=== PATIENT | female | born 1950 | race Caucasian/White ===

== ENCOUNTER → 2017-02-01 | Outpatient (REF) | payer MEDICARE, OTHER ==
[2017-02-01 17:46] LABS: PERCENT SATURATION 29.9 % (13.2-37.4); TOTAL IRON BINDING CAPACITY 308 UG/DL (250-450)
[2017-02-01 18:28] LABS: VITAMIN B12 LEVEL 873 PG/ML
[2017-02-01 18:29] LABS: FOLATE > 24.0 NG/ML
== END ==
LOC: M LAB REF 17:12
PROVIDERS: ATTEND Internal Medicine
DX: Z98.84 Bariatric surgery status (principal)

== ENCOUNTER → 2017-04-29 | Outpatient (CLI) | payer MEDICARE, BC, OTHER ==
--- NOTE | 2017-05-04 00:05 | SLEEPCENT ---
DATE OF PROCEDURE: 04/29/2017 ORDERED BY: Ria Garcia Nocturnal polysomnography was performed for evaluation of sleep apnea syndrome symptoms in this patient with a history of excessive somnolence and nonrestorative sleep. 7 hours and 57 minutes of data were reviewed. There were 147 minutes of sleep identified. Sleep latency was quite prolonged at 194 minutes. Rapid eye movement (REM) sleep was not achieved. Sleep architecture showed fragmentation and poor progression with periods of wake after sleep onset. Overall sleep efficiency was quite reduced at 31.5%. The patient's EKG showed a sinus rhythm with PVCs. PVCs were frequent, but there were no salvos or trains of events. Average heart rate 60 beats per minute. Rate ranged 40 to 82 beats per minute. EEG showed reasonably normal waveforms for awake and sleep. There were 223 respiratory events identified of 10 seconds in duration or greater for an apnea-hypopnea index of 91. The events were primarily obstructive, though 48 central and mixed apneas were also seen. The events were not exclusive to sleep stage nor body posture. Arousals from respiratory events occurred 50.6 times per hour and oxygen desaturations were seen into the low 80s. There was some limb activity noted and profound snoring. Arousals from limb events were few. IMPRESSION: Severe obstructive sleep apnea syndrome (G47.33), apnea-hypopnea index 91. RECOMMENDATION: The patient should be encouraged to return to the sleep disorder center at her earliest convenience for pressure therapy. In the interim, alcohol and sedative avoidance should be practiced and caution exercised during the operation of motor vehicles. Copy To: Dr. Hood
== END ==
LOC: M SLEEP 19:36
PROVIDERS: ATTEND Nurse Practitioner Adult Health
DX: G47.33 Obstructive sleep apnea (adult) (pediatric) (principal)

== ENCOUNTER → 2017-10-03 | Outpatient (CLI) | payer MEDICARE, BC, OTHER | LOC: M SLEEP 19:45 | DX: G47.33 Obstructive sleep apnea (adult) (pediatric) (principal); R40.0 Somnolence | CPT/HCPCS: 95811 ==

== ENCOUNTER → 2018-04-03 | Outpatient (CLI) | payer MEDICARE, BC, OTHER ==
[2018-04-03 13:42] LABS: HEMATOCRIT 39.5 % (36.0-47.0); HEMOGLOBIN 12.8 g/dl (12.0-15.5); MEAN CORPUSCULAR HEMOGLOBIN 30.4 pg (27.0-33.0); MEAN CORPUSCULAR HGB CONC 32.4 g/dl (32.0-36.5); MEAN CORPUSCULAR VOLUME 93.8 fl (80.0-96.0); PLATELET COUNT, AUTOMATED 276 10^3/uL (150-450); RED BLOOD COUNT 4.21 10^6/uL (4.00-5.40); RED CELL DISTRIBUTION WIDTH 13.6 % (11.5-14.5); WHITE BLOOD COUNT 9.2 10^3/uL (4.0-10.0)
[2018-04-03 13:51] LABS: INR 0.93; PROTHROMBIN TIME 12.6 SECONDS (12.1-14.4)
[2018-04-03 14:10] LABS: ERYTHROCYTE SEDIMENTATION RATE 49 mm/hr (0-30)
[2018-04-03 14:51] LABS: ALBUMIN 3.8 GM/DL (3.2-5.2); ALBUMIN/GLOBULIN RATIO 1.09 (1.00-1.93); ALKALINE PHOSPHATASE 96 U/L (45-117); ALT/SGPT 33 U/L (12-78); ANION GAP 8 MEQ/L (8-16); AST/SGOT 23 U/L (7-37); BILIRUBIN,TOTAL 0.7 MG/DL (0.2-1.0); BLOOD UREA NITROGEN 15 MG/DL (7-18); CALCIUM LEVEL 8.8 MG/DL (8.8-10.2); CARBON DIOXIDE LEVEL 30 MEQ/L (21-32); CHLORIDE LEVEL 105 MEQ/L (98-107); CREATININE FOR GFR 1.24 MG/DL (0.55-1.30); GLOMERULAR FILTRATION RATE 46.1 (>45); GLUCOSE, FASTING 121 MG/DL (70-100); POTASSIUM SERUM 4.1 MEQ/L (3.5-5.1); SODIUM LEVEL 143 MEQ/L (136-145); TOTAL PROTEIN 7.3 GM/DL (6.4-8.2)
== END ==
LOC: M LAB 12:26
DX: Z01.818 Encounter for other preprocedural examination (principal); M17.12 Unilateral primary osteoarthritis, left knee
CPT/HCPCS: 71046

== ENCOUNTER 2018-04-25 09:42 | Inpatient (IN) | payer MEDICARE, BC, OTHER ==
[2018-04-25] MEDS: EPINEPHrine INJ 1 MG/ML 1ML AMP As Ordered ×2 (10:28→12:34)
[2018-04-25] MEDS ORDERED: MIDAZOLAM INJ 2 MG/2 ML VIAL (J2250) As Ordered ×2 (10:49→10:51)
[2018-04-25] MEDS ORDERED: fentaNYL 100 MCG/2 ML INJECTION (J3010) As Ordered (10:51)
[2018-04-25] MEDS: fentaNYL 100 MCG/2 ML INJECTION (J3010) IV (11:07)
[2018-04-25] MEDS: MIDAZOLAM INJ 2 MG/2 ML VIAL (J2250) IV (11:07)
[2018-04-25] MEDS ORDERED: fentaNYL 100 MCG/2 ML INJECTION (J3010) IV ×2 (11:45→14:00)
[2018-04-25] MEDS: CLINDAMYCIN 900 MG in APPROPRIATE DILUENT 1 EA IV ×2 (11:57→20:58)
[2018-04-25] MEDS: TRANEXAMIC ACID 100 MG/ML 10ML VIAL As Ordered (12:33)
[2018-04-25] MEDS: CLINDAMYCIN INJ 900MG/6ML VIAL As Ordered (12:34)
[2018-04-25] MEDS ORDERED: ePHEDrine SULFATE 25 MG/5 ML(5MG/ML) SYRINGE As Ordered (12:50)
[2018-04-25] MEDS ORDERED: PROPOFOL 200 MG/20 ML VIAL As Ordered (13:11)
[2018-04-25] MEDS: BUPIVACAINE LIPOSOME/PF 1.3% 20 ML VIAL (13.3MG/ML)(EXPAREL) As Ordered (13:13)
[2018-04-25] MEDS ORDERED: MORPHINE 1MG/ML IN 0.9% NACL 100ML IV BAG As Ordered (13:26)
[2018-04-25] MEDS: LR 1,000 ML IV ×3 (13:31→18:37)
[2018-04-25] MEDS ORDERED: NALBUPHINE HCL 10 MG/ML AMP (J2300) IV (13:45)
[2018-04-25] MEDS ORDERED: ONDANSETRON 4MG/2ML VIAL (J2405) IV ×3 (13:45→14:00)
[2018-04-25] MEDS ORDERED: EPIDURAL/PCA KEYS XX (13:45)
[2018-04-25] MEDS ORDERED: NALOXONE INJ 0.4 MG/1 ML VIAL (J2310) IV (13:45)
[2018-04-25] MEDS ORDERED: diphenhydrAMINE INJ 50MG/ML VIAL (J1200) IV (13:45)
[2018-04-25] MEDS ORDERED: MORPHINE 10 MG/ML 1ML VIAL (J2270) IV (14:00)
[2018-04-25] MEDS: MORPHINE 1MG/ML IN 0.9% NACL 100ML IV BAG IV (14:00)
[2018-04-25] MEDS ORDERED: PERCOCET 5MG/325MG TAB PO (14:00)
[2018-04-25] MEDS ORDERED: ROPIvacaine 0.5% 30 ML INJECTION (J2795 PER 1MG) (14:05)
[2018-04-25] MEDS ORDERED: EPINEPHrine INJ 1 MG/ML 1ML AMP (14:05)
[2018-04-25] MEDS ORDERED: dexameTHASONE 10 MG/1 ML VIAL PRES.FREE (J1100) (14:05)
[2018-04-25] MEDS ORDERED: FLEET ENEMA PR (14:15)
[2018-04-25] MEDS ORDERED: ACETAMINOPHEN TAB 650MG DOSE (2X325MG) PO (14:15)
[2018-04-25] MEDS: NIFEdipine 30 MG XL TAB PO (18:36)
[2018-04-25] MEDS: CETIRIZINE (ZyrTEC) 10 MG TAB PO (20:57)
[2018-04-25] MEDS: VITAMIN D 1,000 INTERNATIONAL UNITS TABLET PO (20:57)
[2018-04-25] MEDS: buPROPion (WELLBUTRIN SR) 100 MG SR TAB PO (20:57)
[2018-04-25] MEDS: rOPINIRole 0.25 MG TAB(REQUIP) PO (20:57)
[2018-04-26] MEDS: CLINDAMYCIN 900 MG in APPROPRIATE DILUENT 1 EA IV (04:05)
[2018-04-26] MEDS: LEVOTHYROXINE 50MCG TABLET (0.05MG) PO (06:04)
[2018-04-26] MEDS ORDERED: ONDANSETRON 4 MG TAB (S0181) PO (06:45)
[2018-04-26] MEDS ORDERED: PERCOCET 5MG/325MG TAB PO (06:45)
[2018-04-26 07:05] LABS: HEMOGLOBIN 11.5 g/dl (12.0-15.5); MEAN CORPUSCULAR HEMOGLOBIN 29.6 pg (27.0-33.0); MEAN CORPUSCULAR HGB CONC 31.1 g/dl (32.0-36.5); MEAN CORPUSCULAR VOLUME 95.1 fl (80.0-96.0); PLATELET COUNT, AUTOMATED 160 10^3/uL (150-450); RED BLOOD COUNT 3.89 10^6/uL (4.00-5.40); RED CELL DISTRIBUTION WIDTH 13.5 % (11.5-14.5); WHITE BLOOD COUNT 16.1 10^3/uL (4.0-10.0)
[2018-04-26] MEDS: SENOKOT S TAB PO ×2 (09:00→20:27)
[2018-04-26] MEDS: MOM 30ML SUSPENSION UDC PO (09:00)
[2018-04-26] MEDS: MIRALAX *UNIT DOSE* 17GM PACKET PO (09:00)
[2018-04-26] MEDS: OMEPRAZOLE 20 MG CAP PO (09:42)
[2018-04-26] MEDS: VITAMIN D 1,000 INTERNATIONAL UNITS TABLET PO ×2 (09:43→20:27)
[2018-04-26] MEDS: VENLAFAXINE **XR** 75MG CAPSULE PO (09:43)
[2018-04-26] MEDS: buPROPion (WELLBUTRIN SR) 100 MG SR TAB PO ×2 (09:48→20:27)
[2018-04-26] MEDS: NIFEdipine 30 MG XL TAB PO (09:48)
[2018-04-26] MEDS: PERCOCET 5MG/325MG TAB PO ×3 (10:04→21:44)
[2018-04-26] MEDS: FLUBLOK(EGG FREE)(QUAD)INFLUENZA VACC 0.5ML SYRINGE (90682)18YRS&OLDER IM (10:07)
[2018-04-26] MEDS: RIVAROXABAN 10 MG TAB (XARELTO) PO (17:28)
[2018-04-26] MEDS: rOPINIRole 0.25 MG TAB(REQUIP) PO (20:27)
[2018-04-26] MEDS: CETIRIZINE (ZyrTEC) 10 MG TAB PO (20:27)
[2018-04-27] MEDS: PERCOCET 5MG/325MG TAB PO ×3 (03:21→11:29)
[2018-04-27] MEDS: LEVOTHYROXINE 50MCG TABLET (0.05MG) PO (06:01)
[2018-04-27 06:22] LABS: HEMATOCRIT 32.9 % (36.0-47.0); HEMOGLOBIN 10.6 g/dl (12.0-15.5); MEAN CORPUSCULAR HGB CONC 32.2 g/dl (32.0-36.5); MEAN CORPUSCULAR VOLUME 93.2 fl (80.0-96.0); PLATELET COUNT, AUTOMATED 209 10^3/uL (150-450); RED BLOOD COUNT 3.53 10^6/uL (4.00-5.40); RED CELL DISTRIBUTION WIDTH 13.7 % (11.5-14.5); WHITE BLOOD COUNT 13.7 10^3/uL (4.0-10.0)
[2018-04-27] MEDS: SENOKOT S TAB PO (09:00)
[2018-04-27] MEDS: MIRALAX *UNIT DOSE* 17GM PACKET PO (09:00)
[2018-04-27] MEDS: NIFEdipine 30 MG XL TAB PO (09:16)
[2018-04-27] MEDS: MOM 30ML SUSPENSION UDC PO (09:16)
[2018-04-27] MEDS: VITAMIN D 1,000 INTERNATIONAL UNITS TABLET PO (09:17)
[2018-04-27] MEDS: OMEPRAZOLE 20 MG CAP PO (09:17)
[2018-04-27] MEDS: buPROPion (WELLBUTRIN SR) 100 MG SR TAB PO (09:17)
[2018-04-27] MEDS: VENLAFAXINE **XR** 75MG CAPSULE PO (09:17)
== END 2018-04-27 14:40 | disposition home health service (06) | DRG 470 ==
LOC: M OR 09:42 → M MS5PR 14:45
PROC: 0SRD0J9 Replacement of Left Knee Joint with Synthetic Substitute, Cemented, Open Approach (ICD-10-PCS; principal; 2018-04-25 11:42)
DX: M17.12 Unilateral primary osteoarthritis, left knee (principal); Z68.41 Body mass index [BMI] 40.0-44.9, adult; G47.33 Obstructive sleep apnea (adult) (pediatric); F32.9 Major depressive disorder, single episode, unspecified; I12.9 Hypertensive chronic kidney disease with stage 1 through stage 4 chronic kidney disease, or unspecified chronic kidney disease; K21.9 Gastro-esophageal reflux disease without esophagitis; E03.9 Hypothyroidism, unspecified; J30.2 Other seasonal allergic rhinitis; G25.81 Restless legs syndrome; E78.00 Pure hypercholesterolemia, unspecified; N18.3 Chronic kidney disease, stage 3 (moderate); F41.9 Anxiety disorder, unspecified; I73.00 Raynaud's syndrome without gangrene; Z96.651 Presence of right artificial knee joint; Z98.84 Bariatric surgery status; E66.01 Morbid (severe) obesity due to excess calories; Z85.3 Personal history of malignant neoplasm of breast; Z87.891 Personal history of nicotine dependence

== ENCOUNTER → 2018-05-09 | Outpatient (REF) | payer MEDICARE, BC, OTHER ==
[2018-05-10 10:22] LABS: HEPATITIS C VIRUS ABY INDEX < 0.0 INDEX (<0.8)
== END ==
LOC: M LAB REF 16:32
DX: Z01.89 Encounter for other specified special examinations (principal)
CPT/HCPCS: 86803

== ENCOUNTER → 2018-11-17 | Outpatient (REF) | payer MEDICARE, OTHER ==
[~2018-11-17] MED LIST: BIOT5TAB3 PO; BUPR10TASR PO; CALC1TAB72 PO; CLOT1CRE71 TOP; EFFE75CA2 PO; HYDR25TAB PO; LEVO50TA5 PO; MULT1TAB10 PO; NIFE30TA7 PO; OMEP20CA3 PO; PERC5TAB12 PO; POTA10TA16 PO; ROPI0.253 PO; TRAM50TA2 PO; TYLE650T35 PO; VITA100067 PO; VITA50005 PO; VITA500T17 PO; XARE10TA PO; ZYRT10CA5 PO
[2018-11-17 13:49] LABS: IRON (FE) 113 UG/DL (50-170); PERCENT SATURATION 38.6 % (13.2-45.0); TOTAL IRON BINDING CAPACITY 293 UG/DL (250-450)
[2018-11-17 14:00] LABS: VITAMIN B12 LEVEL 1107 PG/ML
[2018-11-17 14:26] LABS: FOLATE > 24.0 NG/ML
== END ==
LOC: M LAB REF 13:25
PROVIDERS: ATTEND Internal Medicine
DX: Z98.84 Bariatric surgery status (principal)

== ENCOUNTER → 2019-04-20 | Outpatient (REF) | payer MEDICARE, OTHER ==
[~2019-04-20] MED LIST changes: -OMEP20CA3 PO; +OMEP20CA4 PO
[2019-04-20 17:01] LABS: FOLATE > 24.0 NG/ML; VITAMIN B12 LEVEL 864 PG/ML
== END ==
LOC: M LAB REF 16:04
PROVIDERS: ATTEND Internal Medicine
DX: Z98.84 Bariatric surgery status (principal)

== ENCOUNTER 2020-04-09 10:48 | Inpatient (IN) | payer MEDICARE, BC, OTHER ==
[~2020-04-09] VITALS: Ht 165.1 cm; Wt 125.9 kg
[~2020-04-09 10:48] MED LIST changes: +ACET650T61 PO; +NIFE1TAB52 PO; -NIFE30TA7 PO; +OMEP1CAP73 PO; -OMEP20CA4 PO; -TYLE650T35 PO
[2020-04-09] MEDS ORDERED: NS 500 ML IV ONE ×3 (11:45→18:45)
[2020-04-09] MEDS ORDERED: ACETAMINOPHEN TAB 650MG DOSE (2X325MG) PO ONE (13:15)
[2020-04-09 14:11] LABS: BASO # 0.1 10^3/uL (0.0-0.2); BASO % 0.2 % (0.0-1.0); HEMATOCRIT 40.4 % (36.0-47.0); HEMOGLOBIN 13.3 g/dl (12.0-15.5); LYMPH # 0.7 10^3/uL (1.5-5.0); LYMPH % 2.6 % (24.0-44.0); MEAN CORPUSCULAR HEMOGLOBIN 30.2 pg (27.0-33.0); MEAN CORPUSCULAR HGB CONC 32.9 g/dl (32.0-36.5); MEAN CORPUSCULAR VOLUME 91.8 fl (80.0-96.0); MONO # 2.1 10^3/uL (0.0-0.8); MONO % 8.2 % (0.0-5.0); NEUTROPHILS # 21.9 10^3/uL (1.5-8.5); NEUTROPHILS % 86.7 % (36.0-66.0); PLATELET COUNT, AUTOMATED 242 10^3/uL (150-450); WHITE BLOOD COUNT 25.2 10^3/uL (4.0-10.0)
[2020-04-09 14:42] LABS: ALBUMIN 3.9 GM/DL (3.2-5.2); BILIRUBIN,DIRECT 0.4 MG/DL (0.0-0.2); BILIRUBIN,TOTAL 1.2 MG/DL (0.2-1.0); CALCIUM LEVEL 9.5 MG/DL (8.8-10.2); CK-MB VALUE MASS 1.5 NG/ML (<3.6); CREATININE FOR GFR 1.32 MG/DL (0.55-1.30); GLOMERULAR FILTRATION RATE 42.6 (>45); MB/CK RELATIVE INDEX 0.74 (< OR =4); THYROID STIMULATING HORMONE 1.84 uIU/ML (0.358-3.740); THYROXINE (T4) 8.7 UG/DL (4.5-12.0); TOTAL PROTEIN 7.5 GM/DL (6.4-8.2); TROPONIN I 0.03 NG/ML (< 0.10)
--- NOTE | 2020-04-09 15:37 | REPVR ---
PROCEDURE INFORMATION: Exam: XR Chest, 1 View Exam date and time: 04/09/2020 3:16 PM Age: 69 years old Clinical indication: Cough and dyspnea; Additional info: Dyspnea/cough TECHNIQUE: Imaging protocol: XR of the chest Views: 1 view. COMPARISON: CR Chest, 2 view PA, Lat 04/03/2018 1:21 PM FINDINGS: Lungs: The pulmonary vasculature appears mildly congested. The lungs are otherwise clear. Pleural space: Unremarkable. No pleural effusion. No pneumothorax. Heart/Mediastinum: The cardiomediastinal silhouette is fairly stable in appearance, allowing for differences in technique. Bones/joints: Unremarkable. IMPRESSION: Mild pulmonary vascular congestion. Electronically signed by: Souleymane Damon On 04/09/2020 15:36:56 PM
[2020-04-09] MEDS ORDERED: IBUPROFEN 400 MG TAB PO ONE (15:45)
--- NOTE | 2020-04-09 16:28 | REPVR ---
PROCEDURE INFORMATION: Exam: CT Chest Without Contrast Exam date and time: 04/09/2020 4:13 PM Age: 69 years old Clinical indication: Fever TECHNIQUE: Imaging protocol: Computed tomography of the chest without contrast. 3D rendering (Not supervised by radiologist): MIP and/or 3D reconstructed images were created by the technologist. Radiation optimization: All CT scans at this facility use at least one of these dose optimization techniques: automated exposure control; mA and/or kV adjustment per patient size (includes targeted exams where dose is matched to clinical indication); or iterative reconstruction. COMPARISON: CR PORTABLE CHEST X-RAY 04/09/2020 3:00 PM FINDINGS: Limitations: Evaluation is somewhat limited by lack of IV contrast. Lungs: Minor dependent atelectasis and scattered scarring is present bilaterally. The lungs are otherwise clear. There is no significant airspace consolidation. Pleural space: Unremarkable. No pneumothorax. No pleural effusion. Heart: Coronary artery calcifications are noted. No significant pericardial effusion. Mediastinal space: There is a small hiatal hernia with operative changes in the region. Aorta: The thoracic aorta is nonaneurysmal. Atherosclerotic vascular calcifications are noted. Lymph nodes: No gross pathologic lymphadenopathy. Liver: The liver is fatty in density. Gallbladder and bile ducts: Cholecystectomy clips are present. Bones/joints: Degenerative changes involve the spine and shoulders. Soft tissues: Unremarkable. IMPRESSION: No evidence for acute pulmonary disease. Electronically signed by: Souleymane Damno On 04/09/2020 16:28:46 PM
[2020-04-09] MEDS ORDERED: CEFTAROLINE FOSAMIL 600 MG in D5W MINI-BAG PLUS 50 ML IV ONE (17:00)
[2020-04-09] MEDS ORDERED: ROPI0.5T3 PO (17:35)
[2020-04-09] MEDS ORDERED: VITA50005 PO (17:35)
[2020-04-09] MEDS ORDERED: VITMTA PO (17:35)
[2020-04-09] MEDS ORDERED: D31000TA2 PO (17:35)
[2020-04-09] MEDS ORDERED: CETI10TA4 PO (17:35)
[2020-04-09] MEDS ORDERED: BUPR1TAB56 PO (17:35)
[2020-04-09] MEDS ORDERED: OYSTTAB3 PO (17:35)
[2020-04-09] MEDS ORDERED: MELO15TA28 PO (17:35)
[2020-04-09] MEDS ORDERED: MAALOX 30 ML SUSP *UDC PO PRN (18:45)
[2020-04-09] MEDS: KCL 40MEQ in NS 1000ML 1,000 ML IV SCH (19:45)
[2020-04-09] MEDS: ACETAMINOPHEN 500 MG TAB PO SCH (20:50)
[2020-04-09] MEDS: DOCUSATE SODIUM 100 MG CAP PO SCH (20:50)
[2020-04-09] MEDS: OMEPRAZOLE 20 MG CAP PO SCH (20:50)
[2020-04-09 21:03] VITALS: BP 128/56
--- NOTE | 2020-04-09 21:25 | HPEPDOC ---
General Date of Admission 04/09/20 Date of Service: Apr 09, 2020 Chief Complaint The patient is a 69-year-old female admitted with a reason for visit of FEVER. History of Present Illness 69 year old female with PMH of OA, obesity, DELORES on BIPAP, Raynauds phenomenon, hypothyroid presented to ED with fever for one day and urinary incontinence for 1 day. She also complained of body aches and chills and nausea. She also had noticed redness of the left lower leg for 1 day extending from the ankle to just below the knee however did not pay attention to it as it was not bothering her and sometimes her legs swell up and become red. The Left leg was more swollen than the other, No pain, no discomfort while walking. No dysuria. No cough or phlegm. She was febrile to 103 on presentation. She was admitted for left leg cellulitis. Work up in the ED showed a negative UA and a negative CT chest. WBC was at 25k, normal lactate. Her BNP was elevated . she had 1 low normal bp reading of 91/58. She received 2 liter bolus. Home Medications Scheduled Biotin (Biotin) 5 Mg Tab, 5 MG PO QPM, (Reported) Bupropion HCl (Bupropion HCl Sr) 200 Mg Tab.sr.12h, 200 MG PO BID, (Reported) Calcium Carbonate/Vitamin D3 (Calcium 500-Vit D3 400 Tablet) 1 Each Tablet, 1 TAB PO BID, (Reported) Cetirizine HCl (Cetirizine HCl) 10 Mg Tablet, 10 MG PO DAILY, (Reported) Cholecalciferol (Vitamin D3) (Vitamin D3) 1,000 Unit Tablet, 1,000 UNITS PO QPM, (Reported) Cyanocobalamin (Vitamin B-12) (Vitamin B-12) 500 Mcg Tab, 500 MCG PO DAILY, (Reported) Ergocalciferol (Vitamin D2) (Vitamin D2) 50,000 Units Cap, 50,000 UNITS PO QWEEK, (Reported) TUESDAY Hydrochlorothiazide (Hydrochlorothiazide) 25 Mg Tab, 25 MG PO DAILY, (Reported) Levothyroxine Sodium (Levothyroxine Sodium) 50 Mcg Tab, 50 MCG PO DAILY, (Reported) Meloxicam (Meloxicam) 15 Mg Tablet, 15 MG PO DAILY, (Reported) Multivitamins (Thera M Plus Tablet) 1 Each Tablet, 1 TAB PO BID, (Reported) Nifedipine (Nifedipine ER) 30 Mg Tab, 30 MG PO DAILY, (Reported) Omeprazole (Omeprazole) 20 Mg Cap, 20 MG PO QPM, (Reported) Potassium Chloride (Potassium Chloride) 10 Meq Tab, 20 MEQ PO DAILY, (Reported) Ropinirole HCl (Ropinirole HCl) 0.5 Mg Tablet, 0.5 MG PO QHS, (Reported) Venlafaxine HCl (Effexor Xr) 75 Mg Cap, 150 MG PO DAILY, (Reported) Allergies Coded Allergies: Penicillins (Verified Allergy, Unknown, RASH/HIVES, 04/09/20) Past Medical History Medical History Sleep apnea on BIPAP Depression. Hypertension. Gastric reflux disease. Hypothyroidism. Restless leg syndrome. Anxiety. Raynaud's disease. h/o Morbid obesity s/p gastric bypass surgery Fatty liver Hiatal hernia OA of both hips Surgical History Left total knee arthroplasty Right total knee arthroplasty. Cholecysectomy Carpal tunnel release. Trigger finger release. Gastric bypass surgery. Family History Significant Family History: Cancer (father), Other (thyroid problem sister) Social History * Smoker: Denies Alcohol: rarely Drugs: denies A-FIB/CHADSVASC A-FIB History Current/History of A-Fib/PAF?: No Review of Systems Constitutional: Reports: Chills, Fever, Malaise, Night Sweats Eyes: Denies: Pain, Vision change ENT: Denies: Head Aches, Ear Pain, Dysphagia Skin: Reports: Rash Pulmonary: Denies: Dyspnea, Cough Cardiovascular: Denies: Chest Pain, Palpitations, Orthopnea, Paroxysmal Noc. Dyspnea, Lt Headedness Gastrointestinal: Reports: Nausea; Denies: Vomiting, Abdominal Pain, Diarrhea Genitourinary: Reports: Incontinence Hematologic: Denies: Bruising, Bleeding Excessively Musculoskeletal: Reports: Back Pain, Joint Pain (bilateral hips) Physical Examination General Exam: Positive: Alert, Cooperative, No Acute Distress Eye Exam: Positive: PERRLA, Conjunctiva & lids normal, EOMI; Negative: Sclera icteric ENT Exam: Positive: Atraumatic, Mucous membr. moist/pink, Pharynx Normal Neck Exam: Positive: Supple; Negative: JVD, thyromegaly Chest Exam: Positive: Clear to auscultation, Normal air movement Heart Exam: Positive: Rate Normal, Regular Rhythm, Normal S1, Normal S2; Negative: Murmurs, Rubs Abdomen Exam: Positive: Normal bowel sounds, Soft; Negative: Tenderness, Hepatospenomegaly Extremity Exam: Positive: Edema (bipedal edema left. right), Swelling (left leg); Negative: Clubbing, Cyanosis Skin Exam: Positive: Other skin issue (redness of the left leg from ankle to below the knee. ) Neuro Exam: Positive: Normal Speech, Strength at 5/5 X4 ext, Normal Tone Psych Exam: Positive: Oriented x 3 Vital Signs Vital Signs Date Time Temp Pulse Resp B/P (MAP) Pulse Ox O2 Delivery O2 Flow Rate FiO2 04/09/20 16:30 79 16 129/58 (81) 95 Room Air 04/09/20 14:45 102.3 Laboratory Data Labs 24H Laboratory Tests 2 04/09/20 11:45: Immature Granulocyte % (Auto) 2.3, Neutrophils (%) (Auto) 86.7H, Lymphocytes (%) (Auto) 2.6L, Monocytes (%) (Auto) 8.2H, Eosinophils (%) (Auto) 0.0, Basophils (%) (Auto) 0.2, Neutrophils # (Auto) 21.9H, Lymphocytes # (Auto) 0.7L, Monocytes # (Auto) 2.1H, Eosinophils # (Auto) 0.0, Basophils # (Auto) 0.1, Nucleated Red Blood Cells % (auto) 0.0, Anion Gap 11, Glomerular Filtration Rate 42.6L, Lactic Acid Level 2.0, Calcium Level 9.5, Total Bilirubin 1.2H, Direct Bilirubin 0.4H, Aspartate Amino Transf (AST/SGOT) 50H, Alanine Aminotransferase (ALT/SGPT) 50, Alkaline Phosphatase 107, Total Creatine Kinase 204H, Creatine Kinase MB 1.5, Creatine Kinase MB Relative Index 0.74, Troponin I 0.03, MX-Nap-K-Type Natriuretic Peptide 2230H, Total Protein 7.5, Albumin 3.9, Albumin/Globulin Ratio 1.1L, Thyroid Stimulating Hormone (TSH) 1.840, Thyroxine (T4) 8.7 04/09/20 12:42: Urine Color YELLOW, Urine Appearance CLEAR, Urine pH 7.0, Urine Specific [place] 1.017, Urine Protein 2+H, Urine Glucose (UA) NEGATIVE, Urine Ketones TRACEH, Urine Blood NEGATIVE, Urine Nitrite NEGATIVE, Urine Bilirubin NEGATIVE, Urine Urobilinogen 0.2, Urine Leukocyte Esterase NEGATIVE, Urine WBC (Auto) 2, Urine RBC (Auto) 3, Urine Hyaline Casts (Auto) 0, Urine Bacteria (Auto) NEGATIVE, Urine Squamous Epithelial Cells 0, Urine Mucus (Auto) SMALL, Urine Sperm (Auto) CBC/BMP Laboratory Tests 04/09/20 11:45 Microbiology Microbiology 04/09/20 Respiratory Virus Panel (PCR) ([facility]) - Final, Complete 04/09/20 Blood Culture, Received Pending 04/09/20 Blood Culture, Received Pending Assessment/Plan 69 year old female with PMH of OA, obesity, DELORES on BIPAP, Raynauds phenomenon, hypothyroid presented to ED with fever for one day and urinary incontinence for 1 day. She also had noticed redness of the left lower leg for 1 day extending f rom the ankle to just below the knee. The leg was more swollen than the other, No pain, no discomfort while walking. No dysuria. No cough or phlegm. She was febrile to 103 on presentation. She was admitted for left leg cellulitis. Left leg Cellulitis with sepsis Temp of 103, WBC 25 K, HR 95, RR 28, Lactate 2.0 2L bolus given, will be cautious about fluids as BNP elevated so may easily go into fluid overload/ pulmonary edema blood culture sent will treat with IV ceftaroline. IVF @ 100 ml/ hour. Hypokalemia replaced with IV potassium. Hypothyroid continue synthroid Hypertension now with some low bps. will hold nifedipine DELORES treated with BiPAP continue home BIPAP when avilable DELORES protocol. H/o Morbid obesity has history of gastric bypass surgery Raynaud disease Hold nifedipine Depression continue home meds venlafaxine will hold wellbutrin. GERD (gastroesophageal reflux disease) continue ppi Restless leg syndrome continue ropinirole. Plan / VTE VTE Prophylaxis Ordered?: Yes PEDRO MENEZES MD Apr 09, 2020 17:12
[2020-04-09] MEDS: rOPINIRole 0.25 MG TAB(REQUIP) PO SCH (21:59)
[2020-04-10] MEDS: IBUPROFEN 600MG TAB PO PRN ×2 (04:38→16:04)
[2020-04-10 06:00] VITALS: BP 157/68
[2020-04-10] MEDS: LEVOTHYROXINE 50MCG TABLET (0.05MG) PO SCH (06:47)
[2020-04-10] MEDS: CEFTAROLINE FOSAMIL 600 MG in D5W MINI-BAG PLUS 50 ML IV SCH ×2 (06:47→18:18)
[2020-04-10 06:59] LABS: BASO % 0.2 % (0.0-1.0); HEMATOCRIT 36.7 % (36.0-47.0); HEMOGLOBIN 11.8 g/dl (12.0-15.5); LYMPH # 0.6 10^3/uL (1.5-5.0); LYMPH % 3.4 % (24.0-44.0); MEAN CORPUSCULAR HEMOGLOBIN 29.6 pg (27.0-33.0); MEAN CORPUSCULAR HGB CONC 32.2 g/dl (32.0-36.5); MEAN CORPUSCULAR VOLUME 92.2 fl (80.0-96.0); MONO # 1.3 10^3/uL (0.0-0.8); MONO % 7.2 % (0.0-5.0); NEUTROPHILS # 16.3 10^3/uL (1.5-8.5); NEUTROPHILS % 88.4 % (36.0-66.0); PLATELET COUNT, AUTOMATED 199 10^3/uL (150-450); RED BLOOD COUNT 3.98 10^6/uL (4.00-5.40); WHITE BLOOD COUNT 18.5 10^3/uL (4.0-10.0)
[2020-04-10] MEDS ORDERED: ACETAMINOPHEN TAB 650MG DOSE (2X325MG) PO ONE (07:15)
[2020-04-10] MEDS ORDERED: ACETAMINOPHEN TAB 650MG DOSE (2X325MG) As Ordered ONE (07:20)
[2020-04-10 07:28] LABS: CALCIUM LEVEL 8.2 MG/DL (8.8-10.2); CREATININE FOR GFR 1.14 MG/DL (0.55-1.30); GLOMERULAR FILTRATION RATE 50.5 (>45); POTASSIUM SERUM 3.1 MEQ/L (3.5-5.1)
[2020-04-10] MEDS ORDERED: NIFEdipine 30 MG XL TAB PO SCH (09:00)
--- NOTE | 2020-04-10 09:02 | REPVR ---
PROCEDURE INFORMATION: Exam: US Duplex Left Lower Extremity Veins, Limited Exam date and time: 04/10/2020 8:41 AM Age: 69 years old Clinical indication: Swelling (edema) of limb; Lower extremity, left; Additional info: Redness and swelling TECHNIQUE: Imaging protocol: Real-time Duplex ultrasound of the Left Lower Extremity with 2-D george scale, color Doppler flow and spectral waveform analysis with image documentation. Limited exam focused on the left lower extremity veins. COMPARISON: No relevant prior studies available. FINDINGS: Left deep veins: Unremarkable. The common femoral, femoral, proximal profunda femoral and popliteal veins are patent without thrombus. Normal Doppler waveforms. Normal compressibility and/or augmentation response. Left superficial veins: Unremarkable. Saphenofemoral junction is patent without thrombus. Soft tissues: Left inguinal lymph nodes measuring up to 1.0 cm short axis, partial fatty replaced. These nodes do not meet size criteria for significance. IMPRESSION: No evidence of deep vein thrombosis. Electronically signed by: Jay Rhoades On 04/10/2020 09:02:07 AM
[2020-04-10] MEDS: ENOXAPARIN 40MG/0.4ML SYRINGE (J1650 PER 10MG) SC SCH (09:48)
[2020-04-10] MEDS: VENLAFAXINE **XR** 75MG CAPSULE PO SCH (09:48)
[2020-04-10] MEDS: ACETAMINOPHEN 500 MG TAB PO SCH (09:48)
[2020-04-10] MEDS: DOCUSATE SODIUM 100 MG CAP PO SCH ×2 (09:48→21:40)
[2020-04-10] MEDS: KCL 40MEQ in NS 1000ML 1,000 ML IV SCH (09:49)
[2020-04-10 14:00] VITALS: BP 108/53
--- NOTE | 2020-04-10 14:44 | IPNPDOC ---
Subjective Date Seen The patient was seen on 04/10/20. Subjective Chief Complaint/HPI Again febrile this am to 102.8. NO nausea or vomiting . No diarrhea, no cough . No abdominal pain, Leg redness better but complains of soreness today. Objective Physical Examination General Exam: Positive: Alert, Cooperative, No Acute Distress Eye Exam: Positive: PERRLA, Conjunctiva & lids normal, EOMI; Negative: Sclera icteric ENT Exam: Positive: Atraumatic, Mucous membr. moist/pink, Pharynx Normal Neck Exam: Positive: Supple; Negative: JVD, thyromegaly Chest Exam: Positive: Clear to auscultation, Normal air movement Heart Exam: Positive: Rate Normal, Regular Rhythm, Normal S1, Normal S2; Negative: Murmurs, Rubs Abdomen Exam: Positive: Normal bowel sounds, Soft; Negative: Tenderness, Hepatospenomegaly Extremity Exam: Positive: Edema (bipedal edema left. right), Swelling (left leg); Negative: Clubbing, Cyanosis Skin Exam: Positive: Other skin issue (redness of the left leg from ankle to below the knee. ) Neuro Exam: Positive: Normal Speech, Strength at 5/5 X4 ext, Normal Tone Psych Exam: Positive: Oriented x 3 Assessment /Plan Assessment 69 year old female with PMH of OA, obesity, DELORES on BIPAP, Raynauds phenomenon, hypothyroid presented to ED with fever for one day and urinary incontinence for 1 day. She also had noticed redness of the left lower leg for 1 day extending from the ankle to just below the knee. The leg was more swollen than the other, No pain, no discomfort while walking. No dysuria. No cough or phlegm. She was febrile to 103 on presentation. She was admitted for left leg cellulitis. Left leg Cellulitis with sepsis Temp of 103, WBC 25 K, HR 95, RR 28, Lactate 2.0 2L bolus given, will be cautious about fluids as BNP elevated so may easily go into fluid overload/ pulmonary edema blood culture sent will treat with IV ceftaroline. cont IVF will get doppler of the veins Hypokalemia replaced with IV potassium. Hypothyroid continue synthroid Hypertension now with some low bps. will hold nifedipine DELORES treated with BiPAP continue home BIPAP when avilable DELORES protocol. H/o Morbid obesity has history of gastric bypass surgery Raynaud disease Hold nifedipine Depression continue home meds venlafaxine will hold wellbutrin. GERD (gastroesophageal reflux disease) continue ppi Restless leg syndrome continue ropinirole. Plan/VTE VTE Prophylaxis Ordered?: Yes VS, I&O, 24H, Fishbone Vital Signs/I&O Vital Signs Date Time Temp Pulse Resp B/P (MAP) Pulse Ox O2 Delivery O2 Flow Rate FiO2 04/10/20 04:38 102.8 04/09/20 21:03 76 20 128/56 (80) 93 Room Air I&O- Last 24 Hours up to 6 AM 04/10/20 07:00 Intake Total 1550 ml Output Total 400 ml Balance 1150 ml Laboratory Data 24H LABS Laboratory Tests 2 04/09/20 11:45: Immature Granulocyte % (Auto) 2.3, Neutrophils (%) (Auto) 86.7H, Lymphocytes (%) (Auto) 2.6L, Monocytes (%) (Auto) 8.2H, Eosinophils (%) (Auto) 0.0, Basophils (%) (Auto) 0.2, Neutrophils # (Auto) 21.9H, Lymphocytes # (Auto) 0.7L, Monocytes # (Auto) 2.1H, Eosinophils # (Auto) 0.0, Basophils # (Auto) 0.1, Nucleated Red Blood Cells % (auto) 0.0, Anion Gap 11, Glomerular Filtration Rate 42.6L, Lactic Acid Level 2.0, Calcium Level 9.5, Total Bilirubin 1.2H, Direct Bilirubin 0.4H, Aspartate Amino Transf (AST/SGOT) 50H, Alanine Aminotransferase (ALT/SGPT) 50, Alkaline Phosphatase 107, Total Creatine Kinase 204H, Creatine Kinase MB 1.5, Creatine Kinase MB Relative Index 0.74, Troponin I 0.03, GO-Lma-Z-Type Natriuretic Peptide 2230H, Total Protein 7.5, Albumin 3.9, Albumin/Globulin Ratio 1.1L, Thyroid Stimulating Hormone (TSH) 1.840, Thyroxine (T4) 8.7 04/09/20 12:42: Urine Color YELLOW, Urine Appearance CLEAR, Urine pH 7.0, Urine Specific [place] 1.017, Urine Protein 2+H, Urine Glucose (UA) NEGATIVE, Urine Ketones TRACEH, Urine Blood NEGATIVE, Urine Nitrite NEGATIVE, Urine Bilirubin NEGATIVE, Urine Urobilinogen 0.2, Urine Leukocyte Esterase NEGATIVE, Urine WBC (Auto) 2, Urine RBC (Auto) 3, Urine Hyaline Casts (Auto) 0, Urine Bacteria (Auto) NEGATIVE, Urine Squamous Epithelial Cells 0, Urine Mucus (Auto) SMALL, Urine Sperm (Auto) CBC/BMP Laboratory Tests 04/09/20 11:45 Microbiology Microbiology 04/09/20 Respiratory Virus Panel (PCR) ([facility]) - Final, Complete 04/09/20 Blood Culture, Received Pending 04/09/20 Blood Culture, Received Pending PEDRO MENEZES MD Apr 10, 2020 06:23
[2020-04-10] MEDS ORDERED: POTASSIUM CHLORIDE 10 MEQ SR TABLET PO ONE (14:45)
[2020-04-10] MEDS: OMEPRAZOLE 20 MG CAP PO SCH (21:40)
[2020-04-10] MEDS: rOPINIRole 0.25 MG TAB(REQUIP) PO SCH (21:40)
[2020-04-10] MEDS: ACETAMINOPHEN 500 MG TAB PO PRN (21:51)
[2020-04-10 22:00] VITALS: BP 150/59
[2020-04-11 06:00] VITALS: BP 151/63
[2020-04-11] MEDS: IBUPROFEN 600MG TAB PO PRN (06:07)
[2020-04-11] MEDS: LEVOTHYROXINE 50MCG TABLET (0.05MG) PO SCH (06:07)
[2020-04-11] MEDS: CEFTAROLINE FOSAMIL 600 MG in D5W MINI-BAG PLUS 50 ML IV SCH ×2 (06:08→18:24)
[2020-04-11 07:34] LABS: HEMATOCRIT 34.7 % (36.0-47.0); HEMOGLOBIN 11.3 g/dl (12.0-15.5); MEAN CORPUSCULAR HEMOGLOBIN 29.7 pg (27.0-33.0); MEAN CORPUSCULAR HGB CONC 32.6 g/dl (32.0-36.5); MEAN CORPUSCULAR VOLUME 91.3 fl (80.0-96.0); PLATELET COUNT, AUTOMATED 166 10^3/uL (150-450); WHITE BLOOD COUNT 12.2 10^3/uL (4.0-10.0)
[2020-04-11 07:55] LABS: CALCIUM LEVEL 8.4 MG/DL (8.8-10.2); CREATININE FOR GFR 1.15 MG/DL (0.55-1.30); POTASSIUM SERUM 3.3 MEQ/L (3.5-5.1)
[2020-04-11 08:13] LABS: LYMPHOCYTES 5 % (16-44); MONOCYTES 3 % (0-5); NEUTROPHILS 84 % (28-66)
[2020-04-11 08:14] LABS: ANISOCYTOSIS 1+; PLATELET ESTIMATE NORMAL (NORMAL)
[2020-04-11] MEDS: DOCUSATE SODIUM 100 MG CAP PO SCH ×2 (08:52→21:12)
[2020-04-11] MEDS: VENLAFAXINE **XR** 75MG CAPSULE PO SCH (08:52)
[2020-04-11] MEDS: ENOXAPARIN 40MG/0.4ML SYRINGE (J1650 PER 10MG) SC SCH (08:52)
[2020-04-11] MEDS ORDERED: FUROSEMIDE 100MG/10ML VIAL (J1940) IV ONE (10:15)
[2020-04-11] MEDS ORDERED: POTASSIUM CHLORIDE 10 MEQ SR TABLET PO ONE (10:15)
--- NOTE | 2020-04-11 10:27 | IPNPDOC ---
Subjective Date Seen The patient was seen on 04/11/20. Subjective Chief Complaint/HPI No new complaints this am. Leg remains swollen but seems to be a little less red and angry. Objective Physical Examination General Exam: Positive: Alert, Cooperative, No Acute Distress Eye Exam: Positive: PERRLA, Conjunctiva & lids normal, EOMI; Negative: Sclera icteric ENT Exam: Positive: Atraumatic, Mucous membr. moist/pink, Pharynx Normal Neck Exam: Positive: Supple; Negative: JVD, thyromegaly Chest Exam: Positive: Clear to auscultation, Normal air movement Heart Exam: Positive: Rate Normal, Regular Rhythm, Normal S1, Normal S2; Negative: Murmurs, Rubs Abdomen Exam: Positive: Normal bowel sounds, Soft; Negative: Tenderness, Hepatospenomegaly Extremity Exam: Positive: Edema (bipedal edema left. right), Swelling (left leg); Negative: Clubbing, Cyanosis Skin Exam: Positive: Other skin issue (redness of the left leg from ankle to below the knee. ) Neuro Exam: Positive: Normal Speech, Strength at 5/5 X4 ext, Normal Tone Psych Exam: Positive: Oriented x 3 Assessment /Plan Assessment 69 year old female with PMH of OA, obesity, DELORES on BIPAP, Raynauds phenomenon, hypothyroid presented to ED with fever for one day and urinary incontinence for 1 day. She also had noticed redness of the left lower leg for 1 day extending f rom the ankle to just below the knee. The leg was more swollen than the other, No pain, no discomfort while walking. No dysuria. No cough or phlegm. She was febrile to 103 on presentation. She was admitted for left leg cellulitis. Left leg Cellulitis with sepsis sepsis has resolved. blood culture sent Cont IV ceftaroline. Hypokalemia replaced Hypothyroid continue synthroid Hypertension nifedipine DELORES treated with BiPAP continue home BIPAP when available DELORES protocol. H/o Morbid obesity has history of gastric bypass surgery Raynaud disease Hold nifedipine Depression continue home meds venlafaxine , wellbutrin. GERD (gastroesophageal reflux disease) continue ppi Restless leg syndrome continue ropinirole. OA with bilat hip pain and back pain mobic, tylenol, tramadol prn Plan/VTE VTE Prophylaxis Ordered?: Yes VS, I&O, 24H, Fishbone Vital Signs/I&O Vital Signs Date Time Temp Pulse Resp B/P (MAP) Pulse Ox O2 Delivery O2 Flow Rate FiO2 04/11/20 06:00 99.0 84 18 151/63 (92) 93 Room Air I&O- Last 24 Hours up to 6 AM 04/11/20 06:00 Intake Total 1750 ml Output Total 0 ml Balance 1750 ml Laboratory Data 24H LABS Laboratory Tests 2 04/11/20 07:16: Neutrophils (%) (Auto) , Nucleated Red Blood Cells % (auto) 0.0, Neutrophils 84H, Band Neutrophils 8, Lymphocytes (Manual) 5L, Monocytes (Manual) 3, Anisocytosis 1+, Platelet Estimate NORMAL, Anion Gap 6L, Glomerular Filtration Rate 50.0, Calcium Level 8.4L CBC/BMP Laboratory Tests 04/11/20 07:16 Microbiology Microbiology 04/09/20 Respiratory Virus Panel (PCR) ([facility]) - Final, Complete 04/09/20 Blood Culture - Preliminary, Resulted No growth after 24 hours . All specim... 04/09/20 Blood Culture - Preliminary, Resulted No growth after 24 hours . All specim... PEDRO MENEZES MD Apr 11, 2020 10:27
[2020-04-11] MEDS: traMADol 50 MG TAB PO PRN ×2 (11:36→21:13)
[2020-04-11] MEDS: MELOXICAM (MOBIC) 7.5 MG TAB PO SCH (11:36)
[2020-04-11] MEDS: NIFEdipine 30 MG XL TAB PO SCH (11:37)
[2020-04-11 14:00] VITALS: BP 149/64
[2020-04-11] MEDS: OMEPRAZOLE 20 MG CAP PO SCH (21:11)
[2020-04-11] MEDS: buPROPion (WELLBUTRIN SR) 100 MG SR TAB PO SCH (21:12)
[2020-04-11] MEDS: rOPINIRole 0.25 MG TAB(REQUIP) PO SCH (21:12)
[2020-04-11] MEDS: POTASSIUM CHLORIDE 10 MEQ SR TABLET PO SCH (21:12)
[2020-04-11 22:00] VITALS: BP 164/82
[2020-04-11 23:15] VITALS: BP 142/56
[2020-04-11] MEDS: ACETAMINOPHEN 500 MG TAB PO PRN (23:28)
[2020-04-12] MEDS: CEFTAROLINE FOSAMIL 600 MG in D5W MINI-BAG PLUS 50 ML IV SCH ×2 (05:09→18:41)
[2020-04-12] MEDS: LEVOTHYROXINE 50MCG TABLET (0.05MG) PO SCH (05:09)
[2020-04-12 06:00] VITALS: BP 126/60
[2020-04-12 07:04] LABS: HEMATOCRIT 37.8 % (36.0-47.0); HEMOGLOBIN 11.8 g/dl (12.0-15.5); MEAN CORPUSCULAR HEMOGLOBIN 28.9 pg (27.0-33.0); MEAN CORPUSCULAR HGB CONC 31.2 g/dl (32.0-36.5); MEAN CORPUSCULAR VOLUME 92.4 fl (80.0-96.0); PLATELET COUNT, AUTOMATED 175 10^3/uL (150-450); RED BLOOD COUNT 4.09 10^6/uL (4.00-5.40); WHITE BLOOD COUNT 10.6 10^3/uL (4.0-10.0)
[2020-04-12 07:33] LABS: CALCIUM LEVEL 8.6 MG/DL (8.8-10.2); CREATININE FOR GFR 1.28 MG/DL (0.55-1.30); GLOMERULAR FILTRATION RATE 44.1 (>45)
[2020-04-12 08:16] LABS: ATYPICAL LYMPH 1 % (0-5); LYMPHOCYTES 10 % (16-44); MONOCYTES 14 % (0-5); NEUTROPHILS 75 % (28-66); PLATELET ESTIMATE NORMAL (NORMAL)
[2020-04-12] MEDS: NIFEdipine 30 MG XL TAB PO SCH (09:30)
[2020-04-12] MEDS: VENLAFAXINE **XR** 75MG CAPSULE PO SCH (09:30)
[2020-04-12] MEDS: DOCUSATE SODIUM 100 MG CAP PO SCH ×2 (09:30→22:23)
[2020-04-12] MEDS: POTASSIUM CHLORIDE 10 MEQ SR TABLET PO SCH ×2 (09:30→22:22)
[2020-04-12] MEDS: MELOXICAM (MOBIC) 7.5 MG TAB PO SCH (09:30)
[2020-04-12] MEDS: ENOXAPARIN 40MG/0.4ML SYRINGE (J1650 PER 10MG) SC SCH (09:31)
[2020-04-12] MEDS: buPROPion (WELLBUTRIN SR) 100 MG SR TAB PO SCH ×2 (09:31→22:24)
[2020-04-12] MEDS: traMADol 50 MG TAB PO PRN (09:36)
--- NOTE | 2020-04-12 10:13 | IPNPDOC ---
Subjective Date Seen The patient was seen on 04/12/20. Subjective Chief Complaint/HPI Left leg still very red and tightly swollen. No fever or chills in the last 48 hours. Complaining of heaviness of the head feels her sinuses are acting up. Objective Physical Examination General Exam: Positive: Alert, Cooperative, No Acute Distress Eye Exam: Positive: PERRLA, Conjunctiva & lids normal, EOMI; Negative: Sclera icteric ENT Exam: Positive: Atraumatic, Mucous membr. moist/pink, Pharynx Normal Neck Exam: Positive: Supple; Negative: JVD, thyromegaly Chest Exam: Positive: Clear to auscultation, Normal air movement Heart Exam: Positive: Rate Normal, Regular Rhythm, Normal S1, Normal S2; Negative: Murmurs, Rubs Abdomen Exam: Positive: Normal bowel sounds, Soft; Negative: Tenderness, Hepatospenomegaly Extremity Exam: Positive: Edema (edema on the left), Swelling (left leg); Negative: Clubbing, Cyanosis Skin Exam: Positive: Other skin issue (redness of the left leg from ankle to just above the knee , tensely swollen, shiny) Neuro Exam: Positive: Normal Speech, Strength at 5/5 X4 ext, Normal Tone Psych Exam: Positive: Oriented x 3 Assessment /Plan Assessment 69 year old female with PMH of OA, obesity, DELORES on BIPAP, Raynauds phenomenon, hypothyroid presented to ED with fever for one day and urinary incontinence for 1 day. She also had noticed redness of the left lower leg for 1 day extending from the ankle to just below the knee. The leg was more swollen than the other, No pain, no discomfort while walking. No dysuria. No cough or phlegm. She was febrile to 103 on presentation. She was admitted for left leg cellulitis. Left leg Cellulitis with sepsis sepsis has resolved. blood culture neg till date Cont IV ceftaroline. Hypokalemia replaced Hypothyroid continue synthroid Hypertension nifedipine DELORES treated with BiPAP continue home BIPAP when available DELORES protocol. H/o Morbid obesity has history of gastric bypass surgery Raynaud disease Hold nifedipine Depression continue home meds venlafaxine , wellbutrin. GERD (gastroesophageal reflux disease) continue ppi Restless leg syndrome continue ropinirole. OA with bilat hip pain and back pain mobic, tylenol, tramadol prn Allergies/sinus prob cetrizine Plan/VTE VTE Prophylaxis Ordered?: Yes VS, I&O, 24H, Fishbone Vital Signs/I&O Vital Signs Date Time Temp Pulse Resp B/P (MAP) Pulse Ox O2 Delivery O2 Flow Rate FiO2 04/12/20 09:36 18 04/12/20 09:30 143/62 04/12/20 06:00 97.2 71 92 Room Air I&O- Last 24 Hours up to 6 AM 04/12/20 06:00 Intake Total 1400 ml Output Total 2000 ml Balance -600 ml Laboratory Data 24H LABS Laboratory Tests 2 04/12/20 06:15: Neutrophils (%) (Auto) , Nucleated Red Blood Cells % (auto) 0.0, Neutrophils 75H, Lymphocytes (Manual) 10L, Monocytes (Manual) 14H, Atypical Lymphocytes 1, Red Blood Cell Morphology NORMAL, Platelet Estimate NORMAL, Anion Gap 6L, Glomerular Filtration Rate 44.1L, Calcium Level 8.6L CBC/BMP Laboratory Tests 04/12/20 06:15 Microbiology Microbiology 04/09/20 Respiratory Virus Panel (PCR) ([facility]) - Final, Complete 04/09/20 Blood Culture - Preliminary, Resulted No Growth after 48 hours. All Specime... 04/09/20 Blood Culture - Preliminary, Resulted No Growth after 48 hours. All Specime... PEDRO MENEZES MD Apr 12, 2020 10:13
[2020-04-12] MEDS ORDERED: POTASSIUM CHLORIDE 10 MEQ SR TABLET PO ONE (11:00)
[2020-04-12] MEDS ORDERED: FUROSEMIDE 40MG/4ML VIAL (J1940) IV ONE (11:00)
[2020-04-12] MEDS: CETIRIZINE (ZyrTEC) 10 MG TAB PO SCH (11:42)
[2020-04-12 14:00] VITALS: BP 146/81
[2020-04-12 22:00] VITALS: BP 137/64
[2020-04-12] MEDS: rOPINIRole 0.25 MG TAB(REQUIP) PO SCH (22:23)
[2020-04-12] MEDS: OMEPRAZOLE 20 MG CAP PO SCH (22:23)
[2020-04-12] MEDS: ACETAMINOPHEN 500 MG TAB PO PRN (22:24)
[2020-04-13 06:00] VITALS: BP 145/70
[2020-04-13] MEDS: LEVOTHYROXINE 50MCG TABLET (0.05MG) PO SCH (06:02)
[2020-04-13] MEDS: CEFTAROLINE FOSAMIL 600 MG in D5W MINI-BAG PLUS 50 ML IV SCH ×2 (06:02→17:23)
[2020-04-13 07:00] LABS: BASO # 0.1 10^3/uL (0.0-0.2); BASO % 0.6 % (0.0-1.0); EOS # 0.1 10^3/uL (0.0-0.5); EOS % 1.1 % (0.0-3.0); HEMATOCRIT 35.6 % (36.0-47.0); HEMOGLOBIN 11.5 g/dl (12.0-15.5); LYMPH # 1.1 10^3/uL (1.5-5.0); LYMPH % 10.7 % (24.0-44.0); MEAN CORPUSCULAR HEMOGLOBIN 29.6 pg (27.0-33.0); MEAN CORPUSCULAR HGB CONC 32.3 g/dl (32.0-36.5); MEAN CORPUSCULAR VOLUME 91.8 fl (80.0-96.0); MONO % 19.6 % (0.0-5.0); NEUTROPHILS # 6.8 10^3/uL (1.5-8.5); NEUTROPHILS % 66.4 % (36.0-66.0); PLATELET COUNT, AUTOMATED 194 10^3/uL (150-450); RED BLOOD COUNT 3.88 10^6/uL (4.00-5.40); WHITE BLOOD COUNT 10.2 10^3/uL (4.0-10.0)
[2020-04-13 07:15] LABS: CALCIUM LEVEL 8.5 MG/DL (8.8-10.2); CREATININE FOR GFR 1.31 MG/DL (0.55-1.30); POTASSIUM SERUM 3.2 MEQ/L (3.5-5.1)
[2020-04-13] MEDS: POTASSIUM CHLORIDE 10 MEQ SR TABLET PO SCH ×2 (09:46→21:24)
[2020-04-13] MEDS: DOCUSATE SODIUM 100 MG CAP PO SCH ×2 (09:46→21:23)
[2020-04-13] MEDS: VENLAFAXINE **XR** 75MG CAPSULE PO SCH (09:46)
[2020-04-13] MEDS: CETIRIZINE (ZyrTEC) 10 MG TAB PO SCH (09:46)
[2020-04-13] MEDS: MELOXICAM (MOBIC) 7.5 MG TAB PO SCH (09:47)
[2020-04-13] MEDS: buPROPion (WELLBUTRIN SR) 100 MG SR TAB PO SCH ×2 (09:47→21:24)
[2020-04-13] MEDS: ENOXAPARIN 40MG/0.4ML SYRINGE (J1650 PER 10MG) SC SCH (09:47)
[2020-04-13] MEDS: NIFEdipine 30 MG XL TAB PO SCH (09:50)
[2020-04-13] MEDS: traMADol 50 MG TAB PO PRN ×2 (09:55→21:28)
--- NOTE | 2020-04-13 11:15 | IPNPDOC ---
Subjective Date Seen The patient was seen on 04/13/20. Subjective Chief Complaint/HPI Patient ambulating with nursing, left leg less swollen and less red, soreness is also less. She complains of becoming out of breath on walking small distances. Objective Physical Examination General Exam: Positive: Alert, Cooperative, No Acute Distress Eye Exam: Positive: PERRLA, Conjunctiva & lids normal, EOMI; Negative: Sclera icteric ENT Exam: Positive: Atraumatic, Mucous membr. moist/pink, Pharynx Normal Neck Exam: Positive: Supple; Negative: JVD, thyromegaly Chest Exam: Positive: Clear to auscultation, Normal air movement Heart Exam: Positive: Rate Normal, Regular Rhythm, Normal S1, Normal S2; Negative: Murmurs, Rubs Abdomen Exam: Positive: Normal bowel sounds, Soft; Negative: Tenderness, Hepatospenomegaly Extremity Exam: Positive: Edema (edema on the left), Swelling (left leg); Negative: Clubbing, Cyanosis Skin Exam: Positive: Other skin issue (redness of the left leg from ankle to just above the knee , tensely swollen, shiny) Neuro Exam: Positive: Normal Speech, Strength at 5/5 X4 ext, Normal Tone Psych Exam: Positive: Oriented x 3 Assessment /Plan Assessment 69 year old female with PMH of OA, obesity, DELORES on BIPAP, Raynauds phenomenon, hypothyroid presented to ED with fever for one day and urinary incontinence for 1 day. She also had noticed redness of the left lower leg for 1 day extending from the ankle to just below the knee. She was febrile to 103 on presentation. She was admitted for left leg cellulitis. Left leg Cellulitis with sepsis sepsis has resolved. blood culture neg till date Cont IV ceftaroline. Hypokalemia replaced Hypothyroid continue synthroid Hypertension nifedipine DELORES treated with BiPAP continue home BIPAP when available DELORES protocol. H/o Morbid obesity has history of gastric bypass surgery Raynaud disease nifedipine Depression continue home meds venlafaxine , wellbutrin. GERD (gastroesophageal reflux disease) continue ppi Restless leg syndrome continue ropinirole. OA with bilat hip pain and back pain mobic, tylenol, tramadol prn Allergies/sinus prob cetrizine Plan/VTE VTE Prophylaxis Ordered?: Yes VS, I&O, 24H, Fishbone Vital Signs/I&O Vital Signs Date Time Temp Pulse Resp B/P (MAP) Pulse Ox O2 Delivery O2 Flow Rate FiO2 04/13/20 06:00 97.5 72 20 145/70 (95) 95 Room Air 04/13/20 01:18 2.0 I&O- Last 24 Hours up to 6 AM 04/13/20 07:00 Intake Total 2800 ml Output Total 1950 ml Balance 850 ml Laboratory Data 24H LABS Laboratory Tests 2 04/13/20 06:38: Immature Granulocyte % (Auto) 1.6, Neutrophils (%) (Auto) 66.4H, Lymphocytes (%) (Auto) 10.7L, Monocytes (%) (Auto) 19.6H, Eosinophils (%) (Auto) 1.1, Basophils (%) (Auto) 0.6, Neutrophils # (Auto) 6.8, Lymphocytes # (Auto) 1.1L, Monocytes # (Auto) 2.0H, Eosinophils # (Auto) 0.1, Basophils # (Auto) 0.1, Nucleated Red Blood Cells % (auto) 0.0, Anion Gap 6L, Glomerular Filtration Rate 43.0L, Calcium Level 8.5L CBC/BMP Laboratory Tests 04/13/20 06:38 Microbiology Microbiology 04/09/20 Respiratory Virus Panel (PCR) ([facility]) - Final, Complete 04/09/20 Blood Culture - Preliminary, Resulted No Growth after 72 hours. All specime... 04/09/20 Blood Culture - Preliminary, Resulted No Growth after 72 hours. All specime... PEDRO MENEZES MD Apr 13, 2020 07:56
[2020-04-13 14:00] VITALS: BP 122/49
[2020-04-13] MEDS: ACETAMINOPHEN 500 MG TAB PO PRN (14:53)
[2020-04-13] MEDS: rOPINIRole 0.25 MG TAB(REQUIP) PO SCH (21:24)
[2020-04-13] MEDS: OMEPRAZOLE 20 MG CAP PO SCH (21:24)
[2020-04-13 22:00] VITALS: BP 126/65
[2020-04-14 06:00] VITALS: BP 130/60
[2020-04-14] MEDS: LEVOTHYROXINE 50MCG TABLET (0.05MG) PO SCH (06:03)
[2020-04-14] MEDS: CEFTAROLINE FOSAMIL 600 MG in D5W MINI-BAG PLUS 50 ML IV SCH (06:04)
[2020-04-14 07:19] LABS: BASO # 0.1 10^3/uL (0.0-0.2); BASO % 0.5 % (0.0-1.0); EOS # 0.2 10^3/uL (0.0-0.5); HEMATOCRIT 31.6 % (36.0-47.0); HEMOGLOBIN 10.2 g/dl (12.0-15.5); LYMPH # 1.3 10^3/uL (1.5-5.0); LYMPH % 12.9 % (24.0-44.0); MEAN CORPUSCULAR HEMOGLOBIN 29.6 pg (27.0-33.0); MEAN CORPUSCULAR HGB CONC 32.3 g/dl (32.0-36.5); MEAN CORPUSCULAR VOLUME 91.6 fl (80.0-96.0); MONO % 19.2 % (0.0-5.0); NEUTROPHILS # 6.5 10^3/uL (1.5-8.5); NEUTROPHILS % 63.2 % (36.0-66.0); PLATELET COUNT, AUTOMATED 214 10^3/uL (150-450); RED BLOOD COUNT 3.45 10^6/uL (4.00-5.40); WHITE BLOOD COUNT 10.3 10^3/uL (4.0-10.0)
[2020-04-14 07:37] LABS: CALCIUM LEVEL 8.5 MG/DL (8.8-10.2); CREATININE FOR GFR 1.18 MG/DL (0.55-1.30); GLOMERULAR FILTRATION RATE 48.5 (>45); POTASSIUM SERUM 3.8 MEQ/L (3.5-5.1)
[2020-04-14 09:26] VITALS: BP 130/60
[2020-04-14] MEDS: NIFEdipine 30 MG XL TAB PO SCH (09:26)
[2020-04-14] MEDS: CETIRIZINE (ZyrTEC) 10 MG TAB PO SCH (09:27)
[2020-04-14] MEDS: buPROPion (WELLBUTRIN SR) 100 MG SR TAB PO SCH (09:27)
[2020-04-14] MEDS: DOCUSATE SODIUM 100 MG CAP PO SCH (09:27)
[2020-04-14] MEDS: POTASSIUM CHLORIDE 10 MEQ SR TABLET PO SCH (09:28)
[2020-04-14] MEDS: VENLAFAXINE **XR** 75MG CAPSULE PO SCH (09:28)
[2020-04-14] MEDS: MELOXICAM (MOBIC) 7.5 MG TAB PO SCH (09:29)
[2020-04-14] MEDS: ENOXAPARIN 40MG/0.4ML SYRINGE (J1650 PER 10MG) SC SCH (09:29)
[2020-04-14] MEDS ORDERED: ACET-683 PO (10:19)
--- NOTE | 2020-04-14 12:41 | DS.PDOC ---
Discharge Summary General Date of Admission Apr 09, 2020 at 18:35 Date of Discharge 04/14/20 Discharge Summary PROCEDURES PERFORMED DURING STAY: [None]. DISCHARGE DIAGNOSES: Left Leg cellulitis Sepsis Hypokalemia SECONDARY DIAGNOSIS: Hypothyroid Hypertension DELORES on BIPAP Morbid obesity Raynaud phenomenon Depression OA Restless leg Depression GERD Allergies COMPLICATIONS/CHIEF COMPLAINT: Cellulitis. HOSPITAL COURSE: 69 year old female with PMH of OA, obesity, DELORES on BIPAP, Raynauds phenomenon, hypothyroid presented to ED with fever for one day and urinary incontinence for 1 day. She also had noticed redness of the left lower leg for 1 day extending from the ankle to just below the knee. She was febrile to 103 on presentation. She was admitted for left leg cellulitis. Left leg Cellulitis with sepsis sepsis has resolved. blood culture neg till date treated with IV ceftaroline. Will give Dalvance 1.5 gm on 04/15/20 Hypokalemia replaced Hypothyroid continue Synthroid Hypertension nifedipine DELORES treated with BIPAP continue home BIPAP when available DELORES protocol. H/O Morbid obesity has history of gastric bypass surgery Raynaud disease nifedipine Depression continue home meds venlafaxine , wellbutrin. GERD (gastroesophageal reflux disease) continue ppi Restless leg syndrome continue ropinirole. OA with bilat hip pain and back pain mobic, tylenol Allergies/sinus prob cetrizine DISCHARGE MEDICATIONS: Please see below. ALLERGIES: Please see below. PHYSICAL EXAMINATION ON DISCHARGE: VITAL SIGNS: Please see below. General Exam: Positive: Alert, Cooperative, No Acute Distress Eye Exam: Positive: PERRLA, Conjunctiva & lids normal, EOMI; Negative: Sclera icteric ENT Exam: Positive: Atraumatic, Mucous membr. moist/pink, Pharynx Normal Neck Exam: Positive: Supple; Negative: JVD, thyromegaly Chest Exam: Positive: Clear to auscultation, Normal air movement Heart Exam: Positive: Rate Normal, Regular Rhythm, Normal S1, Normal S2; Negative: Murmurs, Rubs Abdomen Exam: Positive: Normal bowel sounds, Soft; Negative: Tenderness, Hepatospenomegaly Extremity Exam: Positive: Edema (edema on the left), Swelling (left leg); Negative: Clubbing, Cyanosis Skin Exam: Positive: Other skin issue (redness of the left leg from ankle to just above the knee , tensely swollen, shiny) Neuro Exam: Positive: Normal Speech, Strength at 5/5 X4 ext, Normal Tone Psych Exam: Positive: Oriented x 3 LABORATORY DATA: Please see below. ACTIVITY: [As tolerated]. DIET: Regular DISCHARGE PLAN: Home DISCHARGE INSTRUCTIONS: Follow up PMD in 1 week DISCHARGE CONDITION: [Stable]. TIME SPENT ON DISCHARGE: 35 minutes. Vital Signs/I&Os Vital Signs Date Time Temp Pulse Resp B/P (MAP) Pulse Ox O2 Delivery O2 Flow Rate FiO2 04/14/20 09:26 130/60 04/14/20 06:00 97.2 75 20 99 Nasal Cannula 2.0 I&O- Last 24 Hours up to 6 AM 04/14/20 05:59 Intake Total 3170 ml Output Total 1050 ml Balance 2120 ml Laboratory Data Labs 24H Laboratory Tests 2 04/14/20 06:37: Immature Granulocyte % (Auto) 2.2, Neutrophils (%) (Auto) 63.2, Lymphocytes (%) (Auto) 12.9L, Monocytes (%) (Auto) 19.2H, Eosinophils (%) (Auto) 2.0, Basophils (%) (Auto) 0.5, Neutrophils # (Auto) 6.5, Lymphocytes # (Auto) 1.3L, Monocytes # (Auto) 2.0H, Eosinophils # (Auto) 0.2, Basophils # (Auto) 0.1, Nucleated Red Blood Cells % (auto) 0.0, Anion Gap 9, Glomerular Filtration Rate 48.5, Calcium Level 8.5L CBC/BMP Laboratory Tests 04/14/20 06:37 Microbiology Microbiology 04/09/20 Respiratory Virus Panel (PCR) ([facility]) - Final, Complete 04/09/20 Blood Culture - Preliminary, Resulted No Growth after 72 hours. All specime... 04/09/20 Blood Culture - Preliminary, Resulted No Growth after 72 hours. All specime... Discharge Medications Scheduled Biotin (Biotin) 5 Mg Tab, 5 MG PO QPM, (Reported) Bupropion HCl (Bupropion HCl Sr) 200 Mg Tab.sr.12h, 200 MG PO BID, (Reported) Calcium Carbonate/Vitamin D3 (Calcium 500-Vit D3 400 Tablet) 1 Each Tablet, 1 TAB PO BID, (Reported) Cetirizine HCl (Cetirizine HCl) 10 Mg Tablet, 10 MG PO DAILY, (Reported) Cholecalciferol (Vitamin D3) (Vitamin D3) 1,000 Unit Tablet, 1,000 UNITS PO QPM, (Reported) Cyanocobalamin (Vitamin B-12) (Vitamin B-12) 500 Mcg Tab, 500 MCG PO DAILY, (Reported) Ergocalciferol (Vitamin D2) (Vitamin D2) 50,000 Units Cap, 50,000 UNITS PO QWEEK, (Reported) TUESDAY Hydrochlorothiazide (Hydrochlorothiazide) 25 Mg Tab, 25 MG PO DAILY, (Reported) Levothyroxine Sodium (Levothyroxine Sodium) 50 Mcg Tab, 50 MCG PO DAILY, (Reported) Meloxicam (Meloxicam) 15 Mg Tablet, 15 MG PO DAILY, (Reported) Multivitamins (Thera M Plus Tablet) 1 Each Tablet, 1 TAB PO BID, (Reported) Nifedipine (Nifedipine ER) 30 Mg Tab, 30 MG PO DAILY, (Reported) Omeprazole (Omeprazole) 20 Mg Cap, 20 MG PO QPM, (Reported) Potassium Chloride (Potassium Chloride) 10 Meq Tab, 20 MEQ PO DAILY, (Reported) Ropinirole HCl (Ropinirole HCl) 0.5 Mg Tablet, 0.5 MG PO QHS, (Reported) Venlafaxine HCl (Effexor Xr) 75 Mg Cap, 150 MG PO DAILY, (Reported) Scheduled PRN Acetaminophen (Acetaminophen) 500 Mg Tablet, 1,000 MG PO BIDP PRN for pain or fever Allergies Coded Allergies: Penicillins (Verified Allergy, Unknown, RASH/HIVES, 04/09/20) PEDRO MENEZES MD Apr 14, 2020 12:41
== END 2020-04-14 13:30 | disposition home or self-care (01) | DRG 872 ==
LOC: M ED 10:48 → M ED INP 18:35 → ENRESERV 20:25 → M MS5PR 21:12
PROVIDERS: ADMIT Internal Medicine Nephrology; ATTEND Internal Medicine Nephrology
DX: A41.9 Sepsis, unspecified organism (principal); L03.116 Cellulitis of left lower limb; Z68.42 Body mass index [BMI] 45.0-49.9, adult; E66.9 Obesity, unspecified; G47.33 Obstructive sleep apnea (adult) (pediatric); I73.00 Raynaud's syndrome without gangrene; E03.9 Hypothyroidism, unspecified; R32 Unspecified urinary incontinence; M16.0 Bilateral primary osteoarthritis of hip; E87.6 Hypokalemia; F32.9 Major depressive disorder, single episode, unspecified; K21.9 Gastro-esophageal reflux disease without esophagitis; G25.81 Restless legs syndrome; F41.9 Anxiety disorder, unspecified; K76.0 Fatty (change of) liver, not elsewhere classified; K44.9 Diaphragmatic hernia without obstruction or gangrene; Z98.84 Bariatric surgery status; Z96.653 Presence of artificial knee joint, bilateral; Z79.899 Other long term (current) drug therapy

== ENCOUNTER → 2020-04-29 | Outpatient (REF) | payer MEDICARE, BC, OTHER ==
[~2020-04-29] MED LIST changes: +ACET-683 PO; +BUPR1TAB56 PO; +CETI10TA4 PO; +D31000TA2 PO; +MELO15TA28 PO; +OYSTTAB3 PO; +ROPI0.5T3 PO; +VITMTA PO
[2020-04-29 17:10] LABS: IRON (FE) 78 UG/DL (50-170); PERCENT SATURATION 26.8 % (13.2-45.0); TOTAL IRON BINDING CAPACITY 291 UG/DL (250-450)
[2020-04-29 17:21] LABS: FOLATE > 24.0 NG/ML; VITAMIN B12 LEVEL > 2000 PG/ML
== END ==
LOC: M LAB REF 16:14
PROVIDERS: ATTEND Internal Medicine
DX: Z98.84 Bariatric surgery status (principal)

== ENCOUNTER → 2021-01-29 | Outpatient (CLI) | payer MEDICARE, BC, OTHER ==
[~2021-01-29] MED LIST changes: +ERGO500029 PO; +HYDR-3490 PO; -HYDR25TAB PO; +ISOVUE-300 61% 50ML VIAL As Ordered ONE; +LIDOCAINE 1% MDV 20ML VIAL As Ordered ONE; +TRIAMCINOLONE ACETONIDE SUSP 40 MG/ML VIAL (J3301) As Ordered ONE
--- NOTE | 2021-01-29 15:56 | REP ---
INDICATION: LEFT HIP OSTEOARTHRITIS. COMPARISON: None. TECHNIQUE: The procedure was performed under the direct supervision of Dr. Ye. The benefits and risks including but not limited to pain infection and bleeding and anaphylaxis were explained to the patient and informed consent was obtained. The left femoral neck was localized using fluoroscopic guidance. The skin was prepped and draped in a sterile fashion. 1% lidocaine was used as a local anesthetic. Using fluoroscopic guidance, and last image hold technology, a 22-gauge spinal needle was inserted and advanced to the femoral neck. 0.5 ml of Isovue-300 was injected to verify placement. Six ml of a solution containing 5 ml of 1% Xylocaine and 1 mL of Kenalog 40 mg was injected. The needle was then removed. The patient tolerated the procedure well and there were no immediate complications. Less than 6 seconds of fluoro time was utilized for this procedure. FINDINGS: None IMPRESSION: Fluoro guidance for left hip injection. <Electronically signed by Kenrick Johnson > 01/29/21 [id number] <Electronically signed by Meng Ye > 01/29/21 [id number]
== END ==
LOC: M RADPRO 13:07
PROVIDERS: ATTEND Orthopaedic Surgery
DX: M16.12 Unilateral primary osteoarthritis, left hip (principal)
CPT/HCPCS: 20610; 77002; J3301; Q9967

== ENCOUNTER → 2021-02-02 | Outpatient (CLI) | payer MEDICARE, BC, OTHER ==
[~2021-02-02] MED LIST changes: -ISOVUE-300 61% 50ML VIAL As Ordered ONE; -LIDOCAINE 1% MDV 20ML VIAL As Ordered ONE; -TRIAMCINOLONE ACETONIDE SUSP 40 MG/ML VIAL (J3301) As Ordered ONE
--- NOTE | 2021-02-04 00:36 | REPVR ---
PROCEDURE INFORMATION: Exam: MR Cervical Spine Without Contrast Exam date and time: 02/02/2021 11:42 AM Age: 70 years old Clinical indication: Neck pain; Additional info: Cervicalgia, R/O stenosis TECHNIQUE: Imaging protocol: Multiplanar magnetic resonance images of the cervical spine without contrast. COMPARISON: CT Chest without contrast 04/09/2020 4:07 PM FINDINGS: Cervical vertebral body heights are intact. Straightening of the cervical lordosis. The dens is intact. No abnormal marrow signal. No cord compression, expansion, or abnormal cord signal. Visualized structures of the posterior fossa are unremarkable. Soft tissues are unremarkable. C2-C3: No significant canal or foraminal narrowing. C3-C4: Uncovertebral spurring and facet hypertrophy cause moderate left and mild right foraminal narrowing. No significant canal narrowing. C4-C5: Posterior disc protrusion and uncovertebral spurring cause mild canal narrowing. Moderate left foraminal narrowing. C5-C6: Posterior disc protrusion and uncovertebral spurring cause mild canal narrowing. Moderate right and mild left foraminal narrowing. C6-C7: Posterior disc protrusion and uncovertebral spurring cause mild canal narrowing and moderate bilateral foraminal narrowing. C7-T1: Posterior disc protrusion and uncovertebral spurring cause mild canal narrowing. Moderate bilateral foraminal narrowing. 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 Electronically signed by: Remigio Engel On 02/04/2021 00:35:23 AM
== END ==
LOC: M PLAIMG 10:08
PROVIDERS: ATTEND Orthopaedic Surgery
DX: M54.2 Cervicalgia (principal)

== ENCOUNTER → 2021-02-03 | Outpatient (REF) | payer MEDICARE, BC, OTHER ==
[2021-02-03 14:29] LABS: FOLATE > 24.0 NG/ML; VITAMIN B12 LEVEL 1081 PG/ML
== END ==
LOC: M LAB REF 12:24
PROVIDERS: ATTEND Internal Medicine
DX: G47.33 Obstructive sleep apnea (adult) (pediatric) (principal)

== ENCOUNTER → 2021-02-25 | Outpatient (CLI) | payer MEDICARE, BC ==
--- NOTE | 2021-02-25 14:13 | REPMRS ---
Patient History The patient states she has not had a clinical breast exam in over a year. Patient is postmenopausal. Family history of unknown cancer at age 50 or over in father. Took hormonal contraceptives for 8 years. Patient states no breast complaints today. Patient has signed MRS History Sheet. Digital Woman Screen Mammo: February 25, 2021 - Exam #: [id number] Bilateral CC and MLO view(s) were taken. Technologist: Chary Bonilla, Technologist Prior study comparison: February 02, 2019, bilateral digital mammo screening bilat, performed at [email or web address]. November 15, 2016, bilateral digital mammo screening bilat, performed at [email or web address]. September 22, 2015, bilateral digital mammo screening bilat, performed at [email or web address]. FINDINGS: The breast tissue is almost entirely fat. The Volpara volumetric breast density category is: A. There has been no change in the appearance of the mammogram from the prior studies. There is no interval development of dominant mass, architectural distortion, or grouped microcalcification typical of malignancy. 3-D tomosynthesis shows no additional findings. Assessment: BI-RADS/ACR category 1 mammogram. Negative Mammogram. Recommendation Routine screening mammogram of both breasts in 1 year (for women over age 40). This patient's [facility] Lifetime Breast Cancer RIsk is estimated at 5.2 %. This mammogram was interpreted with the aid of an FDA-approved computer-aided dectection system. Electronically Signed By: Meng Ye MD 02/25/21 [id number]
== END ==
LOC: M WHC 11:09
PROVIDERS: ATTEND Internal Medicine
DX: Z12.31 Encounter for screening mammogram for malignant neoplasm of breast (principal)

== ENCOUNTER → 2022-02-02 | Outpatient (REF) | payer MEDICARE, OTHER ==
[~2022-02-02] MED LIST changes: -D31000TA2 PO; +POTA-149 PO; -POTA10TA16 PO; +VITA100093 PO
[2022-02-02 18:04] LABS: IRON (FE) 111 UG/DL (50-170); PERCENT SATURATION 36.3 % (13.2-45.0); TOTAL IRON BINDING CAPACITY 306 UG/DL (250-450)
[2022-02-02 19:18] LABS: VITAMIN B12 LEVEL 1689 PG/ML
[2022-02-02 19:19] LABS: FOLATE > 24.0 NG/ML
== END ==
LOC: M LAB REF 16:48
PROVIDERS: ATTEND Internal Medicine
DX: Z98.84 Bariatric surgery status (principal); G25.81 Restless legs syndrome

== ENCOUNTER → 2022-03-05 | Outpatient (CLI) | payer MEDICARE, OTHER | LOC: M SLEEP 20:00 | PROVIDERS: ATTEND Nurse Practitioner Adult Health | DX: G47.33 Obstructive sleep apnea (adult) (pediatric) (principal) ==

== ENCOUNTER → 2022-03-19 | Outpatient (CLI) | payer MEDICARE, OTHER | LOC: M WHC 09:54 | PROVIDERS: ATTEND Internal Medicine | DX: Z12.31 Encounter for screening mammogram for malignant neoplasm of breast (principal) ==

== ENCOUNTER → 2023-02-09 | Outpatient (REF) | payer MEDICARE, OTHER ==
[~2023-02-09] MED LIST changes: -ROPI0.253 PO; -ROPI0.5T3 PO; +ROPI0.5T33 PO; +ROPI5TAB19 PO
[2023-02-09 15:12] LABS: IRON (FE) 93 UG/DL (50-170); PERCENT SATURATION 31.7 % (13.2-45.0); TOTAL IRON BINDING CAPACITY 293 UG/DL (250-425)
[2023-02-09 15:15] LABS: FOLATE > 24.0 NG/ML (>5.4); VITAMIN B12 LEVEL 1471 PG/ML (211-911)
== END ==
LOC: M LAB REF 14:47
PROVIDERS: ATTEND Internal Medicine
DX: Z98.84 Bariatric surgery status (principal); D50.9 Iron deficiency anemia, unspecified

== ENCOUNTER → 2023-03-24 | Outpatient (CLI) | payer MEDICARE, BC, OTHER | LOC: M WHC 13:30 | PROVIDERS: ATTEND Internal Medicine | DX: Z12.31 Encounter for screening mammogram for malignant neoplasm of breast (principal); M81.0 Age-related osteoporosis without current pathological fracture ==

== ENCOUNTER → 2023-05-11 | Outpatient (CLI) | payer MEDICARE, BC, OTHER ==
[~2023-05-11] MED LIST changes: +ISOVUE-300 61% 100ML VIAL As Ordered ONE; +LIDOCAINE 1% MDV 20ML VIAL As Ordered ONE; +TRIAMCINOLONE ACETONIDE SUSP 40MG/ML 1ML VIAL As Ordered ONE
== END ==
LOC: M RAD 14:03
PROVIDERS: ATTEND Orthopaedic Surgery
DX: M16.12 Unilateral primary osteoarthritis, left hip (principal)
CPT/HCPCS: 20610; 77002; J3301; Q9967

== ENCOUNTER → 2023-10-19 | Outpatient (CLI) | payer MEDICARE, BC | LOC: M RAD 14:04 | PROVIDERS: ATTEND Orthopaedic Surgery | DX: M16.12 Unilateral primary osteoarthritis, left hip (principal) | CPT/HCPCS: 20610; 77002; J3301; Q9967 ==

== ENCOUNTER → 2024-02-08 | Outpatient (REF) | payer MEDICARE, BC ==
[~2024-02-08] MED LIST changes: -ISOVUE-300 61% 100ML VIAL As Ordered ONE; -LIDOCAINE 1% MDV 20ML VIAL As Ordered ONE; -TRIAMCINOLONE ACETONIDE SUSP 40MG/ML 1ML VIAL As Ordered ONE
[2024-02-08 14:11] LABS: IRON (FE) 127 UG/DL (50-170)
[2024-02-08 14:12] LABS: PERCENT SATURATION 35.2 % (13.2-45.0); TOTAL IRON BINDING CAPACITY 361 UG/DL (250-425); VITAMIN B12 LEVEL 872 PG/ML (211-911)
[2024-02-08 14:13] LABS: FOLATE > 24.0 NG/ML (>5.4)
== END ==
LOC: M LAB REF 12:45
PROVIDERS: ATTEND Internal Medicine
DX: F50.9 Eating disorder, unspecified (principal); Z98.84 Bariatric surgery status

== ENCOUNTER → 2024-04-09 | Outpatient (CLI) | payer MEDICARE, BC | LOC: M WHC 14:15 | PROVIDERS: ATTEND Internal Medicine | DX: Z12.31 Encounter for screening mammogram for malignant neoplasm of breast (principal) ==